=== PATIENT | female | born 1995 | race Caucasian/White ===

== ENCOUNTER 2020-08-29 18:08 | Outpatient (REF) | payer BC, SELFPAY ==
[2020-08-31 13:54] LABS: COVID-19 RT-PCR UVMMC Result Negative (Negative)
== END 2020-08-29 18:09 | disposition home or self-care (01) ==
LOC: NCHCN 18:08
PROVIDERS: Visit Provider Family Medicine
DX: J06.9 Acute upper respiratory infection, unspecified (principal)
CPT/HCPCS: U0003

== ENCOUNTER 2021-01-27 18:13 | Outpatient (REF) | payer SELFPAY ==
[2021-01-29 11:25] LABS: COVID-19 RT-PCR UVMMC Result Negative (Negative)
== END 2021-01-27 18:14 | disposition home or self-care (01) ==
LOC: LBN 18:13
PROVIDERS: Visit Provider Physician Assistant Medical
DX: J06.9 Acute upper respiratory infection, unspecified (principal); R50.9 Fever, unspecified; Z20.822 Contact with and (suspected) exposure to COVID-19
CPT/HCPCS: 87077; U0003; 87070

== ENCOUNTER 2022-12-17 15:18 | Outpatient (REF) | payer SELFPAY ==
[2022-12-17 17:19] LABS: HGB 12.9 g/dL (11.2-15.7); MCH 30.4 pg (27.0-33.0); MCHC 33.9 % (32.0-36.0); MCV 89 fL (80-95); MPV 11.8 fL (8.0-11.0); Platelet Count 251 10^3/uL (130-400); RBC 4.25 10^6/uL (3.93-5.22); RDW-SD 42.1 fL; WBC 7.66 10^3/uL (4.4-10.8)
[2022-12-17 17:34] LABS: ALT 22 U/L (14-59); AST 22 U/L (15-37); Albumin 3.9 g/dL (3.4-5.0); Alkaline Phosphatase 59 U/L (46-116); Anion Gap 9.8 mmol/L (3-11); BUN 10 mg/dL (7-18); Bilirubin, Total 0.5 mg/dL (0.2-1.0); CO2 24.2 mmol/L (21.0-32.0); CREATININE 0.8 mg/dL (0.55-1.02); Calcium 8.5 mg/dL (8.5-10.1); Chloride 107 mmol/L (98-107); Cholesterol 109 mg/dL (<200); Glucose 107 mg/dL (74-106); HDL Cholesterol 45 mg/dL (40-60); Potassium 3.9 mmol/L (3.5-5.1); Sodium 141 mmol/L (136-145); Total Protein 7.2 g/dL (6.4-8.2)
[2022-12-17 17:38] LABS: Triglyceride <25 mg/dL (<150)
[2022-12-17 17:53] LABS: LDL CHOLESTEROL 59 mg/dL (<100)
== END 2022-12-17 15:19 | disposition home or self-care (01) ==
LOC: NCHCN 15:18
PROVIDERS: Visit Provider Physician Assistant
DX: Z00.00 Encounter for general adult medical examination without abnormal findings (principal); Z13.0 Encounter for screening for diseases of the blood and blood-forming organs and certain disorders involving the immune mechanism; Z13.228 Encounter for screening for other metabolic disorders; Z13.220 Encounter for screening for lipoid disorders
CPT/HCPCS: 80053; 80061; 83721; 85027